=== PATIENT | female | born 1990 | race Caucasian/White ===

== ENCOUNTER 2017-06-13 18:42 | Emergency (ER) | payer OTHER ==
[~2017-06-13] VITALS: Ht 162.6 cm; Wt 61.2 kg
[~2017-06-13 18:42] MED LIST: BUPR75 PO; BUPRENORPHINE HC2 MG; CEPH500 PO; CLON.1 PO; FURO40 PO; GABA300 PO; HYDACE10B PO; HYDACE5 PO; HYDPAM50 PO; IBUP800 PO; Keflex500 MG PO; MUPI2TC TOP; Macrobid 100 M100 MG PO; NICO21TP; NICORETTE2 MG; Norco 10-325 T1 EACH PO; OXYACE5T PO; POTCHL10ER PO; PROM25 PO; Pyridium200 MG PO; RXANTBENOT LEFTEAR; RXPROM25 PO; SUBOXONE 12 MG1 EACH SL; SULTRIDS PO; TRAZ50 PO; Verotin-Gr Cap1 EACH PO; ZIPR20 PO
[2017-06-13] MEDS ORDERED: FLUO10 PO (20:29)
[2017-06-13] MEDS ORDERED: Pseudoephedrine30 MG PO (21:01)
[2017-06-13] MEDS ORDERED: Mucinex600 MG PO (21:01)
== END 2017-06-13 22:27 | disposition home or self-care (01) ==
LOC: ER 18:42
DX: J40 Bronchitis, not specified as acute or chronic (principal); J06.9 Acute upper respiratory infection, unspecified; F41.9 Anxiety disorder, unspecified; D64.9 Anemia, unspecified; F17.210 Nicotine dependence, cigarettes, uncomplicated; Z88.5 Allergy status to narcotic agent; Z79.899 Other long term (current) drug therapy
CPT/HCPCS: 99283

== ENCOUNTER → 2018-10-05 | Outpatient (CLI) | payer OTHER ==
[~2018-10-05] MED LIST changes: +FLUO10 PO; +Mucinex600 MG PO; +Pseudoephedrine30 MG PO
[2018-10-08 02:09] LABS: CHLAMYDIA TRACHOMATIS, NAA Negative (Negative); HPV 16 Negative (Negative); HPV 18 Negative (Negative); HPV OTHER HR TYPES Negative (Negative); NEISSERIA GONORRHOEAE, NAA Negative (Negative)
== END | disposition home or self-care (01) ==
LOC: LAB SHORT 16:06 → LAB 16:06
PROVIDERS: Obstetrics & Gynecology
DX: Z01.419 Encounter for gynecological examination (general) (routine) without abnormal findings (principal); Z11.3 Encounter for screening for infections with a predominantly sexual mode of transmission
CPT/HCPCS: 87491; 87591; 87624; G0123

== ENCOUNTER 2018-11-13 19:47 | Emergency (ER) | payer OTHER ==
[~2018-11-13] VITALS: Ht 162.6 cm; Wt 59.0 kg
[2018-11-13] MEDS ORDERED: Augmentin 875-1 EACH PO (21:12)
== END 2018-11-13 21:31 | disposition home or self-care (01) ==
LOC: ER 19:47
DX: N61.0 Mastitis without abscess (principal); Z88.5 Allergy status to narcotic agent; Z79.899 Other long term (current) drug therapy; F41.9 Anxiety disorder, unspecified; D64.9 Anemia, unspecified; F17.210 Nicotine dependence, cigarettes, uncomplicated
CPT/HCPCS: 99283

== ENCOUNTER 2020-01-24 22:50 | Emergency (ER) | payer OTHER ==
[~2020-01-24] VITALS: Ht 165.1 cm; Wt 56.7 kg
[~2020-01-24 22:50] MED LIST changes: +Augmentin 875-1 EACH PO
== END 2020-01-25 00:38 | disposition home or self-care (01) ==
LOC: ER 22:50
DX: M79.604 Pain in right leg (principal); R20.2 Paresthesia of skin; F41.9 Anxiety disorder, unspecified; F41.0 Panic disorder [episodic paroxysmal anxiety]; F17.290 Nicotine dependence, other tobacco product, uncomplicated; Z97.5 Presence of (intrauterine) contraceptive device; Z88.5 Allergy status to narcotic agent; Z79.899 Other long term (current) drug therapy
CPT/HCPCS: 93971; 99283-25

== ENCOUNTER 2022-09-09 01:42 | Day surgery (SDC) | payer OTHER ==
[~2022-09-09 01:42] MED LIST changes: +AMOCLA875 PO; +IBU800 MG PO
== END 2022-09-09 22:50 | disposition home or self-care (01) ==
LOC: WOUND 01:42
DX: S91.352S Open bite, left foot, sequela (principal); L97.522 Non-pressure chronic ulcer of other part of left foot with fat layer exposed; I87.2 Venous insufficiency (chronic) (peripheral); F17.200 Nicotine dependence, unspecified, uncomplicated; R60.0 Localized edema
CPT/HCPCS: G0463

== ENCOUNTER 2022-09-11 00:59 | Day surgery (SDC) | payer OTHER | END 2022-09-11 22:51 | disposition home or self-care (01) | LOC: WOUND 00:59 | DX: S91.352S Open bite, left foot, sequela (principal); L97.512 Non-pressure chronic ulcer of other part of right foot with fat layer exposed; I87.2 Venous insufficiency (chronic) (peripheral); F17.200 Nicotine dependence, unspecified, uncomplicated; R60.0 Localized edema | CPT/HCPCS: A9270 ==

== ENCOUNTER 2022-09-18 02:22 | Day surgery (SDC) | payer OTHER | END 2022-09-18 23:22 | disposition home or self-care (01) | LOC: WOUND 02:22 | DX: L97.522 Non-pressure chronic ulcer of other part of left foot with fat layer exposed (principal); S91.352S Open bite, left foot, sequela; W55.01XS Bitten by cat, sequela; I87.2 Venous insufficiency (chronic) (peripheral); R60.0 Localized edema; F17.200 Nicotine dependence, unspecified, uncomplicated | CPT/HCPCS: 99406; A9270; G0463 ==

== ENCOUNTER 2022-09-29 09:21 | Day surgery (SDC) | payer OTHER | END 2022-09-29 22:53 | disposition home or self-care (01) | LOC: WOUND 09:21 | DX: L97.522 Non-pressure chronic ulcer of other part of left foot with fat layer exposed (principal); I87.2 Venous insufficiency (chronic) (peripheral); I89.0 Lymphedema, not elsewhere classified; S91.352S Open bite, left foot, sequela; W55.01XS Bitten by cat, sequela; F17.200 Nicotine dependence, unspecified, uncomplicated | CPT/HCPCS: A9270 ==

== ENCOUNTER 2022-10-08 00:06 | Day surgery (SDC) | payer OTHER | END 2022-10-08 23:10 | disposition home or self-care (01) | LOC: WOUND 00:06 | DX: L97.522 Non-pressure chronic ulcer of other part of left foot with fat layer exposed (principal); I89.0 Lymphedema, not elsewhere classified; S91.352S Open bite, left foot, sequela; X58.XXXS Exposure to other specified factors, sequela; I87.2 Venous insufficiency (chronic) (peripheral); R60.0 Localized edema; F17.200 Nicotine dependence, unspecified, uncomplicated | CPT/HCPCS: A9270 ==

== ENCOUNTER → 2024-01-21 | Outpatient (CLI) | payer OTHER ==
[~2024-01-21] MED LIST changes: +ALEVAZOL56.7 G1 TOP
[2024-02-01 10:56] LABS: HPV HIGH RISK BY TMA Not Detected; HPV SOURCE Cervical
== END ==
LOC: LAB 17:11 → LAB SHORT 17:11
PROVIDERS: Registered Nurse
DX: Z01.419 Encounter for gynecological examination (general) (routine) without abnormal findings (principal)
CPT/HCPCS: 87624; G0123